=== PATIENT | male | born 1990 | race Caucasian/White ===

== ENCOUNTER 2018-02-25 17:39 | Emergency (ER) | payer MEDICAID ==
--- NOTE | 2018-02-25 19:07 | EDPHY ---
H & P Stated Complaint: infected cyst r lower face under weaver Time Seen by Provider: 02/25/18 18:36 HPI/ROS: Chief Complaint: Face abscess HPI: 27-year-old male has been having a growing face abscess in his right cheek for the last few weeks. He feels increasing pressure and swelling over the last day or 2. He has not seen any care for this. Does have a history of abscesses in the past. No fevers or chills. ROS: 10 point Review of Systems is negative except as noted in the HPI. Family History: non-contributory Physical Exam: General: Awake, alert, no acute distress HEENT: Patient has a 2 x 2.2 cm abscess with pointing fluctuance on his right cheek. There is no bony tenderness. There is no trismus. There is no submandibular fullness or swelling. Neck: No lymphadenopathy, supple - Personal History Current Tetanus Diphtheria and Acellular Pertussis (TDAP): Yes - Medical/Surgical History Hx Asthma: No Hx Chronic Respiratory Disease: No Hx Diabetes: No Hx Cardiac Disease: No Hx Renal Disease: No Hx Cirrhosis: No Hx Alcoholism: No Hx HIV/AIDS: No Hx Splenectomy or Spleen Trauma: No Other PMH: denies - Social History Smoking Status: Current every day smoker Constitutional: Initial Vital Signs Temperature (C) 37.3 C 02/25/18 17:53 Heart Rate 94 02/25/18 17:53 Respiratory Rate 18 02/25/18 17:53 Blood Pressure 124/83 H 02/25/18 17:53 O2 Sat (%) 95 02/25/18 17:53 O2 Delivery Mode Room Air Allergies/Adverse Reactions: No Known Allergies Allergy (Verified 02/25/18 17:53) Home Medications: Medication Instructions Recorded NK [No Known Home Meds] 02/25/18 Medical Decision Making Procedures: Procedure: Abscess drainage. The patient's abscess was located on the right cheek. I obtained verbal consent from the patient to drain the abscess who was informed about the possibility of bleeding and pain. The abscess was incised with 11 blade scalpel and a moderate amount of purulent drainage was expressed. I placed some packing. The patient tolerated the procedure well. The procedure was performed by myself. Departure - Departure Disposition: Home, Routine, Self-Care Clinical Impression: Abscess Condition: Good Instructions: Abscess (ED) Additional Instructions: Follow up at [facility] into the days for abscess recheck. Leave the packing gauze in place until your seen in follow-up. Return to the emergency department for increasing pain, swelling, fevers or chills, or any other concerns. Referrals: [facility],. [Clinic] - As per Instructions
[2018-02-25 19:17] VITALS: BP 120/76
== END 2018-02-25 19:17 | disposition home or self-care (01) ==
PROC: 0H91XZZ Drainage of Face Skin, External Approach (ICD-10-PCS; principal; 2018-02-25)
DX: L02.01 Cutaneous abscess of face (principal); F17.200 Nicotine dependence, unspecified, uncomplicated